=== PATIENT | male | born 1975 | race Caucasian/White ===

== ENCOUNTER 2017-03-18 05:18 | Emergency (ER) | payer MEDICAID, OTHER ==
[2017-03-18 05:30] VITALS: BP 163/95
--- NOTE | 2017-03-18 05:31 | EDM.PDOC ---
ED HPI GENERAL MEDICAL PROBLEM - General Chief Complaint: Lower Extremity Injury/Pain Stated Complaint: HURT L KNEE Time Seen by Provider: 03/18/17 05:29 Source of Information: Reports: Patient History Limitations: Reports: No Limitations - History of Present Illness INITIAL COMMENTS - FREE TEXT/NARRATIVE: twisted left knee when getting off grain bin yesterday worse now. 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 [No Known Home Meds] 01/30/14 [History] Social & Family History - Tobacco Use Years of Tobacco use: 21 Used Tobacco, but Quit: No Second Hand Smoke Exposure: No - Alcohol Use Days Per Week of Alcohol Use: 0 - Recreational Drug Use Recreational Drug Use: No - Living Situation & Occupation Living situation: Reports: , with Family, Other Occupation: Employed Review of Systems - Review of Systems Review Of Systems: ROS reveals no pertinent complaints other than HPI. ED EXAM, GENERAL - Physical Exam Exam: See Below Exam Limited By: No Limitations General Appearance: Alert, WD/WN, Mild Distress, Other (knee pain) Ears: Hearing Grossly Normal Throat/Mouth: Normal Voice, No Airway Compromise Head: Atraumatic Neck: Non-Tender, Full Range of Motion Respiratory/Chest: No Respiratory Distress Cardiovascular: Regular Rate, Rhythm GI/Abdominal: Soft, Non-Tender Extremities: Limited Range of Motion, Other (left knee swollen tender R/P, NV wnl, gait limited to pain.) Neurological: Alert, Oriented, Normal Cognition, No Motor/Sensory Deficits Psychiatric: Flat Affect Skin Exam: Warm, Dry Lymphatic: No Adenopathy Course - Vital Signs Last Recorded V/S: Last Vital Signs Temp 36.8 C 03/18/17 05:29 Pulse 106 H 03/18/17 05:29 Resp 21 H 03/18/17 05:29 BP 163/95 H 03/18/17 05:29 Pulse Ox 99 03/18/17 05:29 - Orders/Labs/Meds Orders: Active Orders 24 hr Category Date Time Status Knee 3V Lt [CR] Urgent Exams 03/18/17 05:31 Taken - Re-Assessments/Exams Free Text/Narrative Re-Assessment/Exam: 03/18/17 06:14 results discussed with pt. Departure - Departure Time of Disposition: 06:15 Disposition: Home, Self-Care 01 Condition: Good Clinical Impression: Knee effusion, left - Discharge Information Instructions: Knee Effusion, [id number] Forms: ED Department Discharge Additional Instructions: 1) wear knee immobilizer, use crutches 2) elevate knee as much as possible next few days 3) see clinic for MRI SCAN or ORTHOPEDIST for KNEE EFFUSION. 4) recheck as needed rx togo; vicodin 5/325mg tid prn x 12 - My Orders Last 24 Hours: My Active Orders 03/18/17 05:31 Knee 3V Lt [CR] Urgent - Assessment/Plan Last 24 Hours: My Active Orders 03/18/17 05:31 Knee 3V Lt [CR] Urgent
[2017-03-18] MEDS ORDERED: Acetaminophen/HYDROcodone 325-10 MG Tab PO ONE (06:21)
[2017-03-18] MEDS ORDERED: Acetaminophen/HYDROcodone 325-10 MG Tab ONE (06:21)
== END 2017-03-18 06:25 | disposition home or self-care (01) ==
LOC: DL.ED 05:18
DX: M25.462 Effusion, left knee (principal); X50.1XXA Overexertion from prolonged static or awkward postures, initial encounter
CPT/HCPCS: 73562-LT; 99283; A9270-GY